=== PATIENT | male | born 1950 | race Hispanic/Latino ===

== ENCOUNTER → 2019-05-07 | Outpatient (CLI) | payer MEDICARE ==
--- NOTE | 2019-05-07 12:32 | Diagnostic Imaging Report ---
TECHNIQUE: Magnetic resonance imaging of the LEFT foot was performed WITHOUT injected contrast. HISTORY: Foot pain COMPARISON: None available. DISCUSSION: Soft tissue ulceration involving the second toe. Subluxation at the PIP joint of the second toe. No T1 replacement or significant bone marrow edema. Mild intermediate signal adjacent to the IP joint of the second toe. No soft tissue abscess. Atrophy of the foot musculature. IMPRESSION: Ulceration of the second toe without osteomyelitis. Signed by: Dr. Harman Fair M.D. on 05/07/2019 12:28 PM
== END ==
LOC: MRI 10:18
PROVIDERS: ATTEND Podiatrist
DX: E11.621 Type 2 diabetes mellitus with foot ulcer (principal); E11.69 Type 2 diabetes mellitus with other specified complication; E11.65 Type 2 diabetes mellitus with hyperglycemia; L97.521 Non-pressure chronic ulcer of other part of left foot limited to breakdown of skin

== ENCOUNTER 2019-05-12 15:03 | Outpatient (RCR) | payer MEDICARE ==
[~2019-05-12 15:03] MED LIST: COLLAGENASE OINTMENT 30 GM TUBE ONE; LIDOCAINE/PRILOCAINE 2.5-2.5% KIT ONE
== END 2019-05-18 ==
LOC: WCC 15:03
PROVIDERS: ATTEND Podiatrist
DX: E11.621 Type 2 diabetes mellitus with foot ulcer (principal); E11.69 Type 2 diabetes mellitus with other specified complication; E11.65 Type 2 diabetes mellitus with hyperglycemia; M86.8X9 Other osteomyelitis, unspecified sites; L97.429 Non-pressure chronic ulcer of left heel and midfoot with unspecified severity; L97.521 Non-pressure chronic ulcer of other part of left foot limited to breakdown of skin; N18.5 Chronic kidney disease, stage 5; I10 Essential (primary) hypertension; E78.49 Other hyperlipidemia
CPT/HCPCS: 87071; 87075; 87102; 87205; 87206; 88305; 88311

== ENCOUNTER 2019-06-09 14:51 | Outpatient (RCR) | payer MEDICARE | END 2019-06-17 | LOC: WCC 14:51 | PROVIDERS: ATTEND Podiatrist | DX: E11.621 Type 2 diabetes mellitus with foot ulcer (principal); E11.69 Type 2 diabetes mellitus with other specified complication; E11.65 Type 2 diabetes mellitus with hyperglycemia; M86.8X9 Other osteomyelitis, unspecified sites; L97.521 Non-pressure chronic ulcer of other part of left foot limited to breakdown of skin; L97.429 Non-pressure chronic ulcer of left heel and midfoot with unspecified severity; N18.5 Chronic kidney disease, stage 5; I10 Essential (primary) hypertension; E78.49 Other hyperlipidemia ==

== ENCOUNTER → 2019-07-15 | Outpatient (CLI) | payer MEDICARE ==
--- NOTE | 2019-07-15 16:25 | Diagnostic Imaging Report ---
TECHNIQUE: Magnetic resonance imaging of the LEFT foot was performed WITHOUT injected contrast. HISTORY: Diabetes, ulceration COMPARISON: May 07, 2019 DISCUSSION: Prior amputation across the first metatarsal. 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 Stable deformity and subluxation at the PIP joint of the second toe. No T1 replacement or significant bone marrow edema. Stable intermediate signal adjacent to the IP joint of the second toe. No soft tissue abscess. Atrophy of the foot musculature. IMPRESSION: Stable deformity and subluxation about the knee joint of the second toe. No progressive osteomyelitis. Signed by: Dr. Harman Fair M.D. on 07/15/2019 4:21 PM
== END ==
LOC: MRI 13:57
PROVIDERS: ATTEND Podiatrist
DX: E11.621 Type 2 diabetes mellitus with foot ulcer (principal); L97.429 Non-pressure chronic ulcer of left heel and midfoot with unspecified severity

== ENCOUNTER 2019-07-16 12:59 | Outpatient (RCR) | payer MEDICARE ==
[~2019-07-16 12:59] MED LIST changes: -COLLAGENASE OINTMENT 30 GM TUBE ONE; +LIDOCAINE HCL 2% LOCAL 20 ML VIAL ONE; +SILVER SULFADIAZINE 50GM CREAM ONE
[2019-07-16] MEDS ORDERED: SILVER SULFADIAZINE 50GM CREAM ONE ×2 (14:46→15:09)
== END 2019-07-18 ==
LOC: WCC 12:59
PROVIDERS: ATTEND Podiatrist
DX: E11.621 Type 2 diabetes mellitus with foot ulcer (principal); E11.69 Type 2 diabetes mellitus with other specified complication; E11.65 Type 2 diabetes mellitus with hyperglycemia; M86.8X9 Other osteomyelitis, unspecified sites; L97.521 Non-pressure chronic ulcer of other part of left foot limited to breakdown of skin; L97.429 Non-pressure chronic ulcer of left heel and midfoot with unspecified severity; N18.5 Chronic kidney disease, stage 5; I10 Essential (primary) hypertension; E78.49 Other hyperlipidemia
CPT/HCPCS: 11042 ×2; 11044; 88304; 99201; 99213 ×2; J2001

== ENCOUNTER 2019-08-11 14:52 | Outpatient (RCR) | payer MEDICARE ==
[~2019-08-11 14:52] MED LIST changes: -LIDOCAINE HCL 2% LOCAL 20 ML VIAL ONE; +LIDOCAINE VISC 2% SOLN 15 ML UDC ONE; -LIDOCAINE/PRILOCAINE 2.5-2.5% KIT ONE; -SILVER SULFADIAZINE 50GM CREAM ONE
== END 2019-08-17 ==
LOC: WCC 14:52
PROVIDERS: ATTEND Podiatrist
DX: E11.621 Type 2 diabetes mellitus with foot ulcer (principal); E11.22 Type 2 diabetes mellitus with diabetic chronic kidney disease; E11.69 Type 2 diabetes mellitus with other specified complication; E11.65 Type 2 diabetes mellitus with hyperglycemia; M86.8X9 Other osteomyelitis, unspecified sites; L97.521 Non-pressure chronic ulcer of other part of left foot limited to breakdown of skin; L97.429 Non-pressure chronic ulcer of left heel and midfoot with unspecified severity; N18.5 Chronic kidney disease, stage 5; I10 Essential (primary) hypertension; E78.49 Other hyperlipidemia; E78.00 Pure hypercholesterolemia, unspecified; E55.9 Vitamin D deficiency, unspecified

== ENCOUNTER 2019-09-01 15:04 | Outpatient (RCR) | payer MEDICARE ==
[2019-09-01] MEDS ORDERED: MINERAL OIL/PETROLAT/GLYCERI 2OZ CRM ONE (16:48)
[2019-09-01] MEDS ORDERED: LIDOCAINE/PRILOCAINE 2.5-2.5% KIT ONE (16:48)
== END 2019-09-17 ==
LOC: WCC 15:04
PROVIDERS: ATTEND Podiatrist
DX: E11.621 Type 2 diabetes mellitus with foot ulcer (principal); E11.22 Type 2 diabetes mellitus with diabetic chronic kidney disease; E11.69 Type 2 diabetes mellitus with other specified complication; E11.65 Type 2 diabetes mellitus with hyperglycemia; M86.8X9 Other osteomyelitis, unspecified sites; L97.429 Non-pressure chronic ulcer of left heel and midfoot with unspecified severity; L97.521 Non-pressure chronic ulcer of other part of left foot limited to breakdown of skin; B35.1 Tinea unguium; L60.3 Nail dystrophy; N18.5 Chronic kidney disease, stage 5; I10 Essential (primary) hypertension; E55.9 Vitamin D deficiency, unspecified; E78.00 Pure hypercholesterolemia, unspecified; E78.49 Other hyperlipidemia

== ENCOUNTER 2019-09-29 14:28 | Outpatient (RCR) | payer MEDICARE | END 2019-10-18 | LOC: WCC 14:28 | PROVIDERS: ATTEND Podiatrist | DX: E11.621 Type 2 diabetes mellitus with foot ulcer (principal); E11.69 Type 2 diabetes mellitus with other specified complication; E11.22 Type 2 diabetes mellitus with diabetic chronic kidney disease; E11.65 Type 2 diabetes mellitus with hyperglycemia; L97.429 Non-pressure chronic ulcer of left heel and midfoot with unspecified severity; L97.521 Non-pressure chronic ulcer of other part of left foot limited to breakdown of skin; M86.8X9 Other osteomyelitis, unspecified sites; L60.3 Nail dystrophy; B35.1 Tinea unguium; N18.5 Chronic kidney disease, stage 5; I10 Essential (primary) hypertension; E78.49 Other hyperlipidemia; E78.00 Pure hypercholesterolemia, unspecified; E55.9 Vitamin D deficiency, unspecified ==

== ENCOUNTER → 2019-11-17 | Outpatient (RCR) | payer MEDICARE ==
[~2019-11-17] MED LIST changes: -LIDOCAINE VISC 2% SOLN 15 ML UDC ONE; +LIDOCAINE/PRILOCAINE 2.5-2.5% KIT ONE; +MINERAL OIL/PETROLAT/GLYCERI 6OZ BTL ONE; +SILVER SULFADIAZINE 50GM CREAM ONE
== END ==
LOC: WCC 10-27 14:59
PROVIDERS: ATTEND Podiatrist
DX: E11.621 Type 2 diabetes mellitus with foot ulcer (principal); E11.69 Type 2 diabetes mellitus with other specified complication; E11.22 Type 2 diabetes mellitus with diabetic chronic kidney disease; E11.65 Type 2 diabetes mellitus with hyperglycemia; L97.429 Non-pressure chronic ulcer of left heel and midfoot with unspecified severity; L97.521 Non-pressure chronic ulcer of other part of left foot limited to breakdown of skin; L60.3 Nail dystrophy; N18.5 Chronic kidney disease, stage 5; I10 Essential (primary) hypertension; E78.49 Other hyperlipidemia; B35.1 Tinea unguium; E55.9 Vitamin D deficiency, unspecified; E78.00 Pure hypercholesterolemia, unspecified; M86.8X9 Other osteomyelitis, unspecified sites

== ENCOUNTER 2019-12-15 14:17 | Outpatient (RCR) | payer MEDICARE ==
[~2019-12-15 14:17] MED LIST changes: +LIDOCAINE VISC 2% SOLN 15 ML UDC ONE; -LIDOCAINE/PRILOCAINE 2.5-2.5% KIT ONE; -MINERAL OIL/PETROLAT/GLYCERI 6OZ BTL ONE; -SILVER SULFADIAZINE 50GM CREAM ONE
== END 2019-12-18 ==
LOC: WCC 14:17
PROVIDERS: ATTEND Podiatrist
DX: E11.621 Type 2 diabetes mellitus with foot ulcer (principal); E11.22 Type 2 diabetes mellitus with diabetic chronic kidney disease; E11.69 Type 2 diabetes mellitus with other specified complication; E11.65 Type 2 diabetes mellitus with hyperglycemia; M86.8X9 Other osteomyelitis, unspecified sites; L97.521 Non-pressure chronic ulcer of other part of left foot limited to breakdown of skin; L97.429 Non-pressure chronic ulcer of left heel and midfoot with unspecified severity; B35.1 Tinea unguium; L60.3 Nail dystrophy; N18.5 Chronic kidney disease, stage 5; I10 Essential (primary) hypertension; E78.49 Other hyperlipidemia; E55.9 Vitamin D deficiency, unspecified; E78.00 Pure hypercholesterolemia, unspecified

== ENCOUNTER 2020-02-02 13:32 | Outpatient (RCR) | payer MEDICARE ==
[~2020-02-02 13:32] MED LIST changes: -LIDOCAINE VISC 2% SOLN 15 ML UDC ONE; +LIDOCAINE/PRILOCAINE 2.5-2.5% KIT ONE
[2020-02-02] MEDS ORDERED: LIDOCAINE VISC 2% SOLN 15 ML UDC ONE (13:43)
== END 2020-02-17 ==
LOC: WCC 13:32
PROVIDERS: ATTEND Podiatrist
DX: E11.621 Type 2 diabetes mellitus with foot ulcer (principal); E11.22 Type 2 diabetes mellitus with diabetic chronic kidney disease; E11.69 Type 2 diabetes mellitus with other specified complication; E11.65 Type 2 diabetes mellitus with hyperglycemia; L97.429 Non-pressure chronic ulcer of left heel and midfoot with unspecified severity; M86.8X9 Other osteomyelitis, unspecified sites; B35.1 Tinea unguium; L60.3 Nail dystrophy; N18.5 Chronic kidney disease, stage 5; I10 Essential (primary) hypertension; E55.9 Vitamin D deficiency, unspecified; E78.00 Pure hypercholesterolemia, unspecified; E78.49 Other hyperlipidemia

== ENCOUNTER 2020-02-23 14:30 | Outpatient (RCR) | payer MEDICARE | END 2020-03-19 | LOC: WCC 14:30 | PROVIDERS: ATTEND Podiatrist | DX: B35.1 Tinea unguium (principal); L60.3 Nail dystrophy; E11.621 Type 2 diabetes mellitus with foot ulcer; E11.22 Type 2 diabetes mellitus with diabetic chronic kidney disease; E11.69 Type 2 diabetes mellitus with other specified complication; E11.65 Type 2 diabetes mellitus with hyperglycemia; M86.8X9 Other osteomyelitis, unspecified sites; L97.429 Non-pressure chronic ulcer of left heel and midfoot with unspecified severity; N18.5 Chronic kidney disease, stage 5; I10 Essential (primary) hypertension; E78.49 Other hyperlipidemia; E55.9 Vitamin D deficiency, unspecified; E78.00 Pure hypercholesterolemia, unspecified ==

== ENCOUNTER 2020-04-19 15:01 | Outpatient (RCR) | payer MEDICARE, OTHER | END 2020-05-17 | LOC: WCC 15:01 | PROVIDERS: ATTEND Podiatrist | DX: E11.621 Type 2 diabetes mellitus with foot ulcer (principal); E11.22 Type 2 diabetes mellitus with diabetic chronic kidney disease; E11.69 Type 2 diabetes mellitus with other specified complication; E11.65 Type 2 diabetes mellitus with hyperglycemia; M86.8X9 Other osteomyelitis, unspecified sites; L97.429 Non-pressure chronic ulcer of left heel and midfoot with unspecified severity; B35.1 Tinea unguium; L60.3 Nail dystrophy; N18.5 Chronic kidney disease, stage 5; I10 Essential (primary) hypertension; E78.49 Other hyperlipidemia; E55.9 Vitamin D deficiency, unspecified; E78.00 Pure hypercholesterolemia, unspecified ==

== ENCOUNTER 2020-06-07 16:28 | Outpatient (RCR) | payer MEDICARE ==
[~2020-06-07 16:28] MED LIST changes: +LIDOCAINE VISC 2% SOLN 15 ML UDC ONE; -LIDOCAINE/PRILOCAINE 2.5-2.5% KIT ONE
== END 2020-06-16 ==
LOC: WCC 16:28
PROVIDERS: ATTEND Podiatrist
DX: E11.621 Type 2 diabetes mellitus with foot ulcer (principal); E11.22 Type 2 diabetes mellitus with diabetic chronic kidney disease; E11.69 Type 2 diabetes mellitus with other specified complication; E11.65 Type 2 diabetes mellitus with hyperglycemia; L97.401 Non-pressure chronic ulcer of unspecified heel and midfoot limited to breakdown of skin; L97.421 Non-pressure chronic ulcer of left heel and midfoot limited to breakdown of skin; L97.429 Non-pressure chronic ulcer of left heel and midfoot with unspecified severity; M86.8X9 Other osteomyelitis, unspecified sites; N18.5 Chronic kidney disease, stage 5; B35.1 Tinea unguium; E55.9 Vitamin D deficiency, unspecified; E78.00 Pure hypercholesterolemia, unspecified; E78.49 Other hyperlipidemia; I10 Essential (primary) hypertension; L60.3 Nail dystrophy

== ENCOUNTER 2020-07-05 14:13 | Outpatient (RCR) | payer MEDICARE ==
[~2020-07-05 14:13] MED LIST changes: -LIDOCAINE VISC 2% SOLN 15 ML UDC ONE; +LIDOCAINE/PRILOCAINE 2.5-2.5% KIT ONE
[2020-07-05] MEDS ORDERED: LIDOCAINE/PRILOCAINE 2.5-2.5% KIT ONE (17:48)
== END 2020-07-17 ==
LOC: WCC 14:13
PROVIDERS: ATTEND Podiatrist
DX: E11.621 Type 2 diabetes mellitus with foot ulcer (principal); E11.22 Type 2 diabetes mellitus with diabetic chronic kidney disease; E11.69 Type 2 diabetes mellitus with other specified complication; E11.65 Type 2 diabetes mellitus with hyperglycemia; L97.401 Non-pressure chronic ulcer of unspecified heel and midfoot limited to breakdown of skin; L97.421 Non-pressure chronic ulcer of left heel and midfoot limited to breakdown of skin; M86.8X9 Other osteomyelitis, unspecified sites; L97.429 Non-pressure chronic ulcer of left heel and midfoot with unspecified severity; N18.5 Chronic kidney disease, stage 5; I10 Essential (primary) hypertension; E55.9 Vitamin D deficiency, unspecified; E78.49 Other hyperlipidemia; E78.00 Pure hypercholesterolemia, unspecified

== ENCOUNTER → 2020-08-16 | Outpatient (RCR) | payer MEDICARE ==
[2020-07-26 17:39] LABS: BASOPHILS # (AUTO) 0.1 (0.0-0.1); EOSINOPHILS # (AUTO) 0.2 (0.0-0.4); EOSINOPHILS % 2.5 % (0.0-6.0); HEMATOCRIT 39.5 % (34.2-44.1); HEMOGLOBIN 12.3 g/dL (12.0-16.0); LYMPHOCYTES # (AUTO) 2.5 (1.0-3.2); LYMPHOCYTES % 28.8 % (18.0-39.1); MEAN CORPUSCULAR HEMOGLOBIN 31.1 pg (28-32); MEAN CORPUSCULAR HGB CONC 31.1 g/dL (31-35); MONOCYTES # (AUTO) 0.7 (0.2-0.8); MONOCYTES % 8.4 % (4.4-11.3); NEUTROPHILS # (AUTO) 5.2 (2.1-6.9); NEUTROPHILS % 59.1 % (38.7-80.0); PLATELET COUNT 292 x10e3/uL (140-360); RED BLOOD COUNT 3.95 x10e6/uL (3.6-5.1); RED CELL DISTRIBUTION WIDTH 13.7 % (11.7-14.4)
== END ==
LOC: WCC 07-26 12:59
PROVIDERS: ATTEND Podiatrist
DX: E11.621 Type 2 diabetes mellitus with foot ulcer (principal); E11.22 Type 2 diabetes mellitus with diabetic chronic kidney disease; E11.69 Type 2 diabetes mellitus with other specified complication; E11.65 Type 2 diabetes mellitus with hyperglycemia; L97.401 Non-pressure chronic ulcer of unspecified heel and midfoot limited to breakdown of skin; L97.421 Non-pressure chronic ulcer of left heel and midfoot limited to breakdown of skin; L97.429 Non-pressure chronic ulcer of left heel and midfoot with unspecified severity; E55.9 Vitamin D deficiency, unspecified; E78.00 Pure hypercholesterolemia, unspecified; E78.49 Other hyperlipidemia; I10 Essential (primary) hypertension; M86.8X9 Other osteomyelitis, unspecified sites; N18.5 Chronic kidney disease, stage 5
CPT/HCPCS: 36415; 83036; 84134; 85025

== ENCOUNTER 2020-08-30 12:40 | Outpatient (RCR) | payer MEDICARE ==
[2020-08-30] MEDS ORDERED: LIDOCAINE/PRILOCAINE 2.5-2.5% KIT ONE (14:02)
[2020-08-30 16:20] LABS: BASOPHILS # (AUTO) 0.1 (0.0-0.1); BASOPHILS % 0.9 % (0.0-1.0); EOSINOPHILS # (AUTO) 0.2 (0.0-0.4); EOSINOPHILS % 2.7 % (0.0-6.0); HEMATOCRIT 39.7 % (34.2-44.1); HEMOGLOBIN 12.4 g/dL (12.0-16.0); LYMPHOCYTES # (AUTO) 2.6 (1.0-3.2); LYMPHOCYTES % 35.4 % (18.0-39.1); MEAN CORPUSCULAR HEMOGLOBIN 30.5 pg (28-32); MEAN CORPUSCULAR HGB CONC 31.2 g/dL (31-35); MEAN CORPUSCULAR VOLUME 97.8 fL (81-99); MONOCYTES # (AUTO) 0.6 (0.2-0.8); MONOCYTES % 8.2 % (4.4-11.3); NEUTROPHILS # (AUTO) 3.9 (2.1-6.9); NEUTROPHILS % 52.5 % (38.7-80.0); PLATELET COUNT 282 x10e3/uL (140-360); RED BLOOD COUNT 4.06 x10e6/uL (3.6-5.1); RED CELL DISTRIBUTION WIDTH 14.1 % (11.7-14.4)
[2020-08-30 16:41] LABS: ALBUMIN 3.8 g/dL (3.5-5.0); ALBUMIN/GLOBULIN RATIO 1.1 (0.8-2.0); ANION GAP 20.1 mmol/L (8-16); CALCIUM 8.8 mg/dL (8.4-10.2); CREATININE, SERUM 5.4 mg/dL (0.57-1.11); POTASSIUM 5.1 mmol/L (3.5-5.1)
== END 2020-09-16 ==
LOC: WCC 12:40
PROVIDERS: ATTEND Podiatrist
DX: E11.621 Type 2 diabetes mellitus with foot ulcer (principal); E11.22 Type 2 diabetes mellitus with diabetic chronic kidney disease; E11.69 Type 2 diabetes mellitus with other specified complication; E11.65 Type 2 diabetes mellitus with hyperglycemia; M86.8X9 Other osteomyelitis, unspecified sites; L97.401 Non-pressure chronic ulcer of unspecified heel and midfoot limited to breakdown of skin; L97.429 Non-pressure chronic ulcer of left heel and midfoot with unspecified severity; L97.421 Non-pressure chronic ulcer of left heel and midfoot limited to breakdown of skin; N18.5 Chronic kidney disease, stage 5; I10 Essential (primary) hypertension; E78.49 Other hyperlipidemia; E55.9 Vitamin D deficiency, unspecified; E78.00 Pure hypercholesterolemia, unspecified
CPT/HCPCS: 36415; 80053; 84134; 85025

== ENCOUNTER 2020-10-11 14:27 | Outpatient (RCR) | payer MEDICARE | END 2020-10-17 | LOC: WCC 14:27 | PROVIDERS: ATTEND Podiatrist | DX: E11.621 Type 2 diabetes mellitus with foot ulcer (principal); E11.22 Type 2 diabetes mellitus with diabetic chronic kidney disease; E11.69 Type 2 diabetes mellitus with other specified complication; E11.65 Type 2 diabetes mellitus with hyperglycemia; M86.8X9 Other osteomyelitis, unspecified sites; L97.401 Non-pressure chronic ulcer of unspecified heel and midfoot limited to breakdown of skin; L97.429 Non-pressure chronic ulcer of left heel and midfoot with unspecified severity; N18.5 Chronic kidney disease, stage 5; I10 Essential (primary) hypertension; E78.49 Other hyperlipidemia; E55.9 Vitamin D deficiency, unspecified; E78.00 Pure hypercholesterolemia, unspecified ==

== ENCOUNTER 2020-11-08 12:51 | Outpatient (RCR) | payer MEDICARE | END 2020-11-16 | LOC: WCC 12:51 | PROVIDERS: ATTEND Podiatrist | DX: E11.621 Type 2 diabetes mellitus with foot ulcer (principal); E11.22 Type 2 diabetes mellitus with diabetic chronic kidney disease; E11.69 Type 2 diabetes mellitus with other specified complication; E11.65 Type 2 diabetes mellitus with hyperglycemia; M86.8X9 Other osteomyelitis, unspecified sites; L97.401 Non-pressure chronic ulcer of unspecified heel and midfoot limited to breakdown of skin; L97.429 Non-pressure chronic ulcer of left heel and midfoot with unspecified severity; N18.5 Chronic kidney disease, stage 5; I10 Essential (primary) hypertension; E78.49 Other hyperlipidemia; E78.00 Pure hypercholesterolemia, unspecified; E55.9 Vitamin D deficiency, unspecified ==

== ENCOUNTER 2020-12-06 12:48 | Outpatient (RCR) | payer MEDICARE | END 2020-12-17 | LOC: WCC 12:48 | PROVIDERS: ATTEND Podiatrist | DX: E11.621 Type 2 diabetes mellitus with foot ulcer (principal); E11.22 Type 2 diabetes mellitus with diabetic chronic kidney disease; E11.69 Type 2 diabetes mellitus with other specified complication; E11.65 Type 2 diabetes mellitus with hyperglycemia; M86.8X9 Other osteomyelitis, unspecified sites; L97.401 Non-pressure chronic ulcer of unspecified heel and midfoot limited to breakdown of skin; L97.429 Non-pressure chronic ulcer of left heel and midfoot with unspecified severity; N18.5 Chronic kidney disease, stage 5; I10 Essential (primary) hypertension; E78.49 Other hyperlipidemia; E78.00 Pure hypercholesterolemia, unspecified; E55.9 Vitamin D deficiency, unspecified ==

== ENCOUNTER 2021-01-03 14:02 | Outpatient (RCR) | payer MEDICARE ==
[~2021-01-03 14:02] MED LIST changes: +GENTAMICIN SULFATE 15 GM CR TP ONE
== END 2021-01-16 ==
LOC: WCC 14:02
PROVIDERS: ATTEND Podiatrist
DX: E11.621 Type 2 diabetes mellitus with foot ulcer (principal); E11.22 Type 2 diabetes mellitus with diabetic chronic kidney disease; E11.69 Type 2 diabetes mellitus with other specified complication; E11.65 Type 2 diabetes mellitus with hyperglycemia; M86.8X9 Other osteomyelitis, unspecified sites; L97.429 Non-pressure chronic ulcer of left heel and midfoot with unspecified severity; L97.401 Non-pressure chronic ulcer of unspecified heel and midfoot limited to breakdown of skin; N18.5 Chronic kidney disease, stage 5; I10 Essential (primary) hypertension; E78.49 Other hyperlipidemia; E78.00 Pure hypercholesterolemia, unspecified; E55.9 Vitamin D deficiency, unspecified

== ENCOUNTER 2021-01-24 12:58 | Outpatient (RCR) | payer MEDICARE | END 2021-02-16 | LOC: WCC 12:58 | PROVIDERS: ATTEND Podiatrist | DX: E11.621 Type 2 diabetes mellitus with foot ulcer (principal); E11.22 Type 2 diabetes mellitus with diabetic chronic kidney disease; E11.69 Type 2 diabetes mellitus with other specified complication; E11.65 Type 2 diabetes mellitus with hyperglycemia; M86.8X9 Other osteomyelitis, unspecified sites; L97.429 Non-pressure chronic ulcer of left heel and midfoot with unspecified severity; N18.5 Chronic kidney disease, stage 5; I10 Essential (primary) hypertension; E78.00 Pure hypercholesterolemia, unspecified; E78.49 Other hyperlipidemia; E55.9 Vitamin D deficiency, unspecified ==

== ENCOUNTER 2021-03-07 13:56 | Outpatient (RCR) | payer MEDICARE | END 2021-03-19 | LOC: WCC 13:56 | PROVIDERS: ATTEND Podiatrist | DX: E11.621 Type 2 diabetes mellitus with foot ulcer (principal); E11.22 Type 2 diabetes mellitus with diabetic chronic kidney disease; E11.69 Type 2 diabetes mellitus with other specified complication; E11.65 Type 2 diabetes mellitus with hyperglycemia; M86.8X9 Other osteomyelitis, unspecified sites; M71.072 Abscess of bursa, left ankle and foot; L08.9 Local infection of the skin and subcutaneous tissue, unspecified; L97.429 Non-pressure chronic ulcer of left heel and midfoot with unspecified severity; N18.5 Chronic kidney disease, stage 5; I10 Essential (primary) hypertension; E78.00 Pure hypercholesterolemia, unspecified; E78.49 Other hyperlipidemia; E55.9 Vitamin D deficiency, unspecified | CPT/HCPCS: 10060; 87071; 87075; 87205 ==

== ENCOUNTER 2021-04-04 12:49 | Outpatient (RCR) | payer MEDICARE | END 2021-04-16 | LOC: WCC 12:49 | PROVIDERS: ATTEND Podiatrist | DX: E11.621 Type 2 diabetes mellitus with foot ulcer (principal); E11.22 Type 2 diabetes mellitus with diabetic chronic kidney disease; E11.69 Type 2 diabetes mellitus with other specified complication; E11.65 Type 2 diabetes mellitus with hyperglycemia; M86.8X9 Other osteomyelitis, unspecified sites; L97.428 Non-pressure chronic ulcer of left heel and midfoot with other specified severity; M71.072 Abscess of bursa, left ankle and foot; L08.9 Local infection of the skin and subcutaneous tissue, unspecified; N18.5 Chronic kidney disease, stage 5; I10 Essential (primary) hypertension; E78.49 Other hyperlipidemia; E78.00 Pure hypercholesterolemia, unspecified; E55.9 Vitamin D deficiency, unspecified ==

== ENCOUNTER 2021-05-09 12:39 | Outpatient (RCR) | payer MEDICARE ==
[~2021-05-09 12:39] MED LIST changes: +LIDOCAINE VISC 2% SOLN 15 ML UDC ONE; -LIDOCAINE/PRILOCAINE 2.5-2.5% KIT ONE
== END 2021-05-17 ==
LOC: WCC 12:39
PROVIDERS: ATTEND Podiatrist
DX: E11.621 Type 2 diabetes mellitus with foot ulcer (principal); E11.22 Type 2 diabetes mellitus with diabetic chronic kidney disease; E11.69 Type 2 diabetes mellitus with other specified complication; E11.65 Type 2 diabetes mellitus with hyperglycemia; M86.8X9 Other osteomyelitis, unspecified sites; L97.422 Non-pressure chronic ulcer of left heel and midfoot with fat layer exposed; M71.072 Abscess of bursa, left ankle and foot; L08.9 Local infection of the skin and subcutaneous tissue, unspecified; N18.5 Chronic kidney disease, stage 5; I10 Essential (primary) hypertension; E78.49 Other hyperlipidemia; E78.00 Pure hypercholesterolemia, unspecified; E55.9 Vitamin D deficiency, unspecified

== ENCOUNTER 2021-06-06 12:36 | Outpatient (RCR) | payer MEDICARE ==
[~2021-06-06 12:36] MED LIST changes: -LIDOCAINE VISC 2% SOLN 15 ML UDC ONE; +LIDOCAINE/PRILOCAINE 2.5-2.5% KIT ONE
== END 2021-06-16 ==
LOC: WCC 12:36
PROVIDERS: ATTEND Podiatrist
DX: E11.621 Type 2 diabetes mellitus with foot ulcer (principal); E11.22 Type 2 diabetes mellitus with diabetic chronic kidney disease; E11.69 Type 2 diabetes mellitus with other specified complication; E11.65 Type 2 diabetes mellitus with hyperglycemia; M86.8X9 Other osteomyelitis, unspecified sites; L97.422 Non-pressure chronic ulcer of left heel and midfoot with fat layer exposed; L08.9 Local infection of the skin and subcutaneous tissue, unspecified; N18.5 Chronic kidney disease, stage 5; I10 Essential (primary) hypertension; E78.49 Other hyperlipidemia; E78.00 Pure hypercholesterolemia, unspecified; E55.9 Vitamin D deficiency, unspecified

== ENCOUNTER 2021-06-27 12:40 | Outpatient (RCR) | payer MEDICARE ==
[2021-06-27] MEDS ORDERED: LIDOCAINE VISC 2% SOLN 15 ML UDC ONE (13:32)
== END 2021-07-17 ==
LOC: WCC 12:40
PROVIDERS: ATTEND Podiatrist
DX: E11.621 Type 2 diabetes mellitus with foot ulcer (principal); E11.22 Type 2 diabetes mellitus with diabetic chronic kidney disease; E11.69 Type 2 diabetes mellitus with other specified complication; E11.65 Type 2 diabetes mellitus with hyperglycemia; M86.8X9 Other osteomyelitis, unspecified sites; L97.422 Non-pressure chronic ulcer of left heel and midfoot with fat layer exposed; L08.9 Local infection of the skin and subcutaneous tissue, unspecified; N18.5 Chronic kidney disease, stage 5; I10 Essential (primary) hypertension; E78.49 Other hyperlipidemia; E78.00 Pure hypercholesterolemia, unspecified; E55.9 Vitamin D deficiency, unspecified

== ENCOUNTER 2021-07-25 13:02 | Outpatient (RCR) | payer MEDICARE ==
[2021-07-25] MEDS ORDERED: LIDOCAINE VISC 2% SOLN 15 ML UDC ONE (13:59)
[2021-07-25] MEDS ORDERED: GENTAMICIN SULFATE 15 GM CR TP ONE (13:59)
== END 2021-08-16 ==
LOC: WCC 13:02
PROVIDERS: ATTEND Podiatrist
DX: E11.621 Type 2 diabetes mellitus with foot ulcer (principal); E11.22 Type 2 diabetes mellitus with diabetic chronic kidney disease; E11.69 Type 2 diabetes mellitus with other specified complication; E11.65 Type 2 diabetes mellitus with hyperglycemia; M86.8X9 Other osteomyelitis, unspecified sites; L08.9 Local infection of the skin and subcutaneous tissue, unspecified; N18.5 Chronic kidney disease, stage 5; I10 Essential (primary) hypertension; E78.49 Other hyperlipidemia; E78.00 Pure hypercholesterolemia, unspecified; E55.9 Vitamin D deficiency, unspecified

== ENCOUNTER 2021-10-10 12:27 | Outpatient (RCR) | payer MEDICARE ==
[~2021-10-10 12:27] MED LIST changes: +COLLAGENASE OINTMENT 30 GM TUBE ONE; -GENTAMICIN SULFATE 15 GM CR TP ONE; +LIDOCAINE VISC 2% SOLN 15 ML UDC ONE; +TRIAMCINOLONE ACET 0.1% CREAM 15 GM TUBE ONE
== END 2021-10-17 ==
LOC: WCC 12:27
PROVIDERS: ATTEND Internal Medicine Infectious Disease
DX: E11.621 Type 2 diabetes mellitus with foot ulcer (principal); E11.622 Type 2 diabetes mellitus with other skin ulcer; E11.22 Type 2 diabetes mellitus with diabetic chronic kidney disease; E11.69 Type 2 diabetes mellitus with other specified complication; E11.65 Type 2 diabetes mellitus with hyperglycemia; M86.8X9 Other osteomyelitis, unspecified sites; L97.421 Non-pressure chronic ulcer of left heel and midfoot limited to breakdown of skin; L97.422 Non-pressure chronic ulcer of left heel and midfoot with fat layer exposed; L97.821 Non-pressure chronic ulcer of other part of left lower leg limited to breakdown of skin; L08.9 Local infection of the skin and subcutaneous tissue, unspecified; N18.5 Chronic kidney disease, stage 5; I10 Essential (primary) hypertension; E78.49 Other hyperlipidemia; E78.00 Pure hypercholesterolemia, unspecified; E55.9 Vitamin D deficiency, unspecified

== ENCOUNTER 2021-11-07 12:32 | Outpatient (RCR) | payer MEDICARE ==
[~2021-11-07 12:32] MED LIST changes: -COLLAGENASE OINTMENT 30 GM TUBE ONE; -LIDOCAINE/PRILOCAINE 2.5-2.5% KIT ONE; +MINERAL OIL/PETROLAT/GLYCERI 2OZ CRM ONE; -TRIAMCINOLONE ACET 0.1% CREAM 15 GM TUBE ONE
== END 2021-11-16 ==
LOC: WCC 12:32
PROVIDERS: ATTEND Podiatrist
DX: T81.89XA Other complications of procedures, not elsewhere classified, initial encounter (principal); E11.621 Type 2 diabetes mellitus with foot ulcer; E11.622 Type 2 diabetes mellitus with other skin ulcer; E11.22 Type 2 diabetes mellitus with diabetic chronic kidney disease; E11.69 Type 2 diabetes mellitus with other specified complication; E11.65 Type 2 diabetes mellitus with hyperglycemia; M86.8X9 Other osteomyelitis, unspecified sites; L97.421 Non-pressure chronic ulcer of left heel and midfoot limited to breakdown of skin; L97.422 Non-pressure chronic ulcer of left heel and midfoot with fat layer exposed; L97.821 Non-pressure chronic ulcer of other part of left lower leg limited to breakdown of skin; L08.9 Local infection of the skin and subcutaneous tissue, unspecified; N18.5 Chronic kidney disease, stage 5; I10 Essential (primary) hypertension; E78.49 Other hyperlipidemia; E78.00 Pure hypercholesterolemia, unspecified; E55.9 Vitamin D deficiency, unspecified

== ENCOUNTER 2021-12-14 09:29 | Outpatient (RCR) | payer MEDICARE ==
[2021-12-14] MEDS ORDERED: LIDOCAINE VISC 2% SOLN 15 ML UDC ONE (13:14)
[2021-12-28] MEDS ORDERED: LIDOCAINE VISC 2% SOLN 15 ML UDC ONE (12:35)
== END 2021-12-17 ==
LOC: WCC 09:29
PROVIDERS: ATTEND Internal Medicine Infectious Disease
DX: T81.89XA Other complications of procedures, not elsewhere classified, initial encounter (principal); E11.621 Type 2 diabetes mellitus with foot ulcer; E11.22 Type 2 diabetes mellitus with diabetic chronic kidney disease; E11.622 Type 2 diabetes mellitus with other skin ulcer; E11.69 Type 2 diabetes mellitus with other specified complication; E11.65 Type 2 diabetes mellitus with hyperglycemia; M86.8X9 Other osteomyelitis, unspecified sites; L97.421 Non-pressure chronic ulcer of left heel and midfoot limited to breakdown of skin; L97.422 Non-pressure chronic ulcer of left heel and midfoot with fat layer exposed; L97.821 Non-pressure chronic ulcer of other part of left lower leg limited to breakdown of skin; L08.9 Local infection of the skin and subcutaneous tissue, unspecified; N18.5 Chronic kidney disease, stage 5; I10 Essential (primary) hypertension; E78.49 Other hyperlipidemia; E78.00 Pure hypercholesterolemia, unspecified; E55.9 Vitamin D deficiency, unspecified
CPT/HCPCS: 87071; 87075; 87205